=== PATIENT | female | born 1990 | race African-American/Black ===

== ENCOUNTER 2019-03-05 09:35 | Emergency (ER) | payer SELFPAY ==
[2019-03-05] MEDS ORDERED: Ondansetron ODT 4 MG TAB ONE (10:20)
[2019-03-05] MEDS ORDERED: Morphine 4 MG/ML VIAL ONE (10:20)
== END 2019-03-05 11:20 | disposition home or self-care (01) ==
LOC: ERS 09:35
DX: K02.9 Dental caries, unspecified (principal); F17.210 Nicotine dependence, cigarettes, uncomplicated; G43.909 Migraine, unspecified, not intractable, without status migrainosus
CPT/HCPCS: 96372; 99283; J2270; Q0162

== ENCOUNTER 2019-06-14 08:10 | Emergency (ER) | payer OTHER, SELFPAY | END 2019-06-14 09:52 | disposition home or self-care (01) | LOC: ERS 08:10 | DX: Z03.818 Encounter for observation for suspected exposure to other biological agents ruled out (principal); J06.9 Acute upper respiratory infection, unspecified; F17.210 Nicotine dependence, cigarettes, uncomplicated | CPT/HCPCS: 87635; 99283; U0002 ==